=== PATIENT | male | born 1965 | race Caucasian/White ===

== ENCOUNTER → 2023-05-06 | Outpatient (CLI) | payer SELFPAY | END | disposition home or self-care (01) | LOC: RESCLI 09:13 | PROVIDERS: ATTEND Family Medicine | DX: E11.9 Type 2 diabetes mellitus without complications (principal); E78.49 Other hyperlipidemia; F51.01 Primary insomnia; E53.8 Deficiency of other specified B group vitamins; F41.1 Generalized anxiety disorder; I63.9 Cerebral infarction, unspecified; I10 Essential (primary) hypertension; E78.5 Hyperlipidemia, unspecified; Z79.899 Other long term (current) drug therapy; Z79.82 Long term (current) use of aspirin; Z82.49 Family history of ischemic heart disease and other diseases of the circulatory system ==